=== PATIENT | male | born 1965 ===

== ENCOUNTER 2018-11-15 08:05 | Emergency (ER) | payer OTHER ==
[2018-11-15 08:11] VITALS: TEMP 98.7; O2SAT 99
[2018-11-15] MEDS ORDERED: Naproxen 550 mg Tab PO STA (08:34)
[2018-11-15] MEDS ORDERED: Naproxen 550 mg Tab PO ONE (08:45)
[2018-11-15 09:35] LABS: URINE BILIRUBIN NEGATIVE (NEGATIVE); URINE BLOOD 1+ (NEGATIVE); URINE CLARITY Clear (Clear); URINE COLOR Yellow (YELLOW); URINE GLUCOSE (UA) NORMAL (Normal); URINE LEUKOCYTE ESTERASE NEG Leu/uL (Negative); URINE PROTEIN NEGATIVE (NEGATIVE); URINE UROBILINOGEN NORMAL mg/dL (0.2-1.0)
--- NOTE | 2018-11-15 09:36 | C.PDOC ---
History Of Present Illness 53 y/o male pt presents to the ER c/o left sided mid to lower back pain for x1 week. Pt often does heaving lifting and he initially thought that is where his back pain came from. Pt notes he took pain medications with no relief. Pt denies fever, abdominal pain, dysuria, hematuria, cough and SOB. Time Seen by Provider: 11/15/18 08:16 Chief Complaint (Nursing): Back Pain History Per: Patient History/Exam Limitations: no limitations Onset/Duration Of Symptoms: Days (x1 week) Current Symptoms Are (Timing): Still Present Past Medical History Reviewed: Historical Data, Nursing Documentation, Vital Signs Vital Signs: Last Vital Signs Temp 98.7 F 11/15/18 08:10 Pulse 72 11/15/18 08:10 Resp 18 11/15/18 08:10 BP 129/77 11/15/18 08:10 Pulse Ox 99 11/15/18 08:10 Primary Care Provider: FAMILY PROVIDER,NO Surgical History: Appendectomy Family History: States: No Known Family Hx - Social History Hx Alcohol Use: Yes Hx Substance Use: No Review Of Systems Constitutional: Negative for: Fever Respiratory: Negative for: Cough, Shortness of Breath Gastrointestinal: Negative for: Abdominal Pain Genitourinary: Negative for: Dysuria, Hematuria Musculoskeletal: Positive for: Back Pain (mid and lower ) Physical Exam - Physical Exam Appears: Non-toxic, No Acute Distress Skin: Warm, Dry, No Rash Head: Normacephalic Eye(s): bilateral: EOMI Cardiovascular: Rhythm Regular Respiratory: Normal Breath Sounds Gastrointestinal/Abdominal: Soft, No Tenderness Back: No CVA Tenderness, No Vertebral Tenderness, Paraspinal Tenderness (mild; left; T12 and L1) Extremity: Normal ROM (x4) Neurological/Psych: Oriented x3, Normal Speech ED Course And Treatment O2 Sat by Pulse Oximetry: 99 (RA) Pulse Ox Interpretation: Normal Progress Note: Plans: -- UA. -- LS spine XR. -- naproxen. -- flexeril Disposition Counseled Patient/Family Regarding: Studies Performed, Diagnosis, Need For Followup, Rx Given - Disposition Referrals: [facility] [Outside] Disposition: HOME/ ROUTINE Disposition Time: 10:10 Condition: STABLE Additional Instructions: FOLLOW UP WITH YOUR DOCTOR/CLINIC IN 1-2 DAYS USE MEDICATIONS NEEDED RETURN TO EMERGENCY ROOM IF YOUR SYMPTOMS BECOME WORSE SEGUIR CON JENKINS MDICO / CLNICA EN 1-2 DORAN UTILICE MEDICAMENTOS AILYN SE NECESITE VUELVA A LA FRACISCO DE EMERGENCIA SI ALVIN SNTOMAS SE HACEN PEOR Prescriptions: Cyclobenzaprine [Flexeril] 10 mg PO BID PRN #15 tab PRN Reason: Muscle Spasm Naproxen 375 mg PO BID PRN #20 tablet PRN Reason: pain Instructions: Low Back Pain (DC) Forms: [employer] (Panamanian) Print Language: TAIWANESE - Clinical Impression Clinical Impression: Low back pain, Osteoarthritis of facet joint of lumbar spine - Scribe Statement The provider has reviewed the documentation as recorded by the Prakash Reid Do Provider Attestation: All medical record entries made by the Scribe were at my direction and personally dictated by me. I have reviewed the chart and agree that the record accurately reflects my personal performance of the history, physical exam, medical decision making, and the department course for this patient. I have also personally directed, reviewed, and agree with the discharge instructions and disposition.
[2018-11-15 10:06] VITALS: BP 111/71; PULSE 66; RESP 20
--- NOTE | 2018-11-15 14:39 | RAD ---
Date of service: 11/15/2018 PROCEDURE: Radiographs of the Lumbar Spine. HISTORY: Low back pain COMPARISON: No prior. TECHNIQUE: 5 views obtained. FINDINGS: BONES: No acute compression fractures no retropulsed fragments. Vertebral bodies exhibit relatively normal stature. Vertebral bodies exhibit mild straightening though otherwise exhibit normal alignment. Facets normally aligned DISC SPACES: Disc space heights relatively maintained. Areas small marginal anterolateral osteophytes are present.. Facet joints are slightly hypertrophic at the L5-S1 and to a lesser degree L4-L5 levels. OTHER FINDINGS: None. IMPRESSION: No acute fractures. Minor facet arthropathy as detailed above
== END 2018-11-15 10:55 | disposition home or self-care (01) ==
LOC: C.ER 08:05
DX: M47.896 Other spondylosis, lumbar region (principal); M54.5 Low back pain